=== PATIENT | female | born 1955 | race Caucasian/White ===

== ENCOUNTER 2017-12-16 07:17 | Day surgery (SDC) | payer BC ==
[~2017-12-16 07:17] MED LIST: Sodium Chloride 0.9% 10 ML Syringe FLUSH PRN
[2017-12-16] MEDS ORDERED: Lactated Ringers 1,000 ML IV SCH (07:30)
[2017-12-16] MEDS ORDERED: Propofol 200 MG/20 ML SDV IV ONE (08:45)
--- NOTE | 2017-12-21 07:47 | PCM.OPNOTE ---
- General Post-Op/Procedure Note Date of Surgery/Procedure: 12/21/17 Operative Procedure(s): c scope with bx Findings: sigmoid and rectal polyps hyperplastic Pre Op Diagnosis: colon cancer screening Post-Op Diagnosis: sigmoid and rectal polyps Anesthesia Technique: MAC Primary Surgeon: Riley Cancino Anesthesia Provider: Lamont Delarosa Pathology: sigmoid colon polyp rectal polyps Complications: None Condition: Good Free Text/Narrative:: see dictation
--- NOTE | 2017-12-21 14:46 | OR ---
DATE OF OPERATION: 12/21/2017 SURGEON: Riley Cancino MD PROCEDURE PERFORMED: Colonoscopy, cold forceps biopsy. PREOPERATIVE DIAGNOSIS: Screening for colon cancer. POSTOPERATIVE DIAGNOSIS: Polyps of the sigmoid and rectum. INDICATIONS FOR PROCEDURE: This is a 62-year-old white female, who presents for a screening colonoscopy. She was offered and accepted the same. DESCRIPTION OF OPERATION: After an excellent IV sedation was administered, digital rectal exam was performed. No marked abnormality was noted. Flexible colonoscope was inserted and advanced to the cecum without difficulty. The prep was excellent. The following findings were noted: Ascending colon was unremarkable. Transverse colon was unremarkable. Descending colon, a hyperplastic-appearing lesion, biopsied with cold biopsy forceps and sent for permanent. Rectum, several hyperplastic-appearing polyps were encountered. These were biopsied as well and sent for permanent. Colon was deflated as the scope was removed. Patient tolerated procedure well, was taken to recovery in good condition. /[id number] JLUIS/DANIELLE
== END 2017-12-16 10:15 | disposition home or self-care (01) ==
LOC: FB.SDS 07:17
PROVIDERS: ATTEND Surgery
DX: Z12.11 Encounter for screening for malignant neoplasm of colon (principal); K63.5 Polyp of colon; K62.1 Rectal polyp; E66.9 Obesity, unspecified; Z68.34 Body mass index [BMI] 34.0-34.9, adult; E78.2 Mixed hyperlipidemia; F32.9 Major depressive disorder, single episode, unspecified; E78.00 Pure hypercholesterolemia, unspecified; Z79.899 Other long term (current) drug therapy
CPT/HCPCS: 88305; J2704; J7120

== ENCOUNTER 2023-02-03 08:04 | Day surgery (SDC) | payer BC, MEDICARE ==
[~2023-02-03 08:04] MED LIST changes: +Lactated Ringers 1,000 ML IV PRN
[2023-02-03] MEDS ORDERED: Midazolam 1 MG/ML 2 ML SDV IV ONE (08:05)
[2023-02-03] MEDS ORDERED: fentaNYL 100 MCG/2 ML SDV IV ONE (08:05)
[2023-02-03] MEDS ORDERED: acetaZOLAMIDE 500 MG Cap.ER PO ONE (10:00)
== END 2023-02-03 10:50 | disposition home or self-care (01) ==
LOC: FB.SDS 08:04
PROVIDERS: ATTEND Ophthalmology
DX: H25.013 Cortical age-related cataract, bilateral (principal); E78.01 Familial hypercholesterolemia; F32.A Depression, unspecified; F41.9 Anxiety disorder, unspecified; G43.909 Migraine, unspecified, not intractable, without status migrainosus; E66.9 Obesity, unspecified; Z79.899 Other long term (current) drug therapy
CPT/HCPCS: 00142; 66984; A9270; J2250; J3010; J3490; V2632

== ENCOUNTER 2023-02-17 07:33 | Day surgery (SDC) | payer MEDICARE ==
[~2023-02-17 07:33] MED LIST changes: -Sodium Chloride 0.9% 10 ML Syringe FLUSH PRN
[2023-02-17] MEDS ORDERED: fentaNYL 100 MCG/2 ML SDV IV ONE (07:34)
[2023-02-17] MEDS ORDERED: Sodium Chloride 0.9% 10 ML Syringe IV ONE (07:34)
[2023-02-17] MEDS ORDERED: Midazolam 1 MG/ML 2 ML SDV IV ONE (07:34)
[2023-02-17] MEDS: Sodium Chloride 0.9% 10 ML Syringe FLUSH PRN (08:15)
[2023-02-17] MEDS: acetaZOLAMIDE 500 MG Cap.ER PO ONE (09:48)
== END 2023-02-17 10:12 | disposition home or self-care (01) ==
LOC: FB.SDS 07:33
PROVIDERS: ATTEND Ophthalmology
DX: H25.013 Cortical age-related cataract, bilateral (principal); F41.9 Anxiety disorder, unspecified; F32.A Depression, unspecified; G43.909 Migraine, unspecified, not intractable, without status migrainosus; I25.10 Atherosclerotic heart disease of native coronary artery without angina pectoris; E78.01 Familial hypercholesterolemia; E78.5 Hyperlipidemia, unspecified; E66.9 Obesity, unspecified; Z79.899 Other long term (current) drug therapy; Z68.34 Body mass index [BMI] 34.0-34.9, adult
CPT/HCPCS: 00142; A9270-GY; J2250; J3010; J3490; V2632

== ENCOUNTER 2023-10-17 13:00 | Emergency (ER) | payer MEDICARE ==
[2023-10-17 13:24] LABS: BLOOD UREA NITROGEN,BUN 20 mg/dL (7-18); BUN/CREATININE RATIO 18.2 (9-20); CARBON DIOXIDE,CO2 24 mmol/L (21-32); CHLORIDE,CL 106 mmol/L (100-110); CREATININE 1.1 mg/dL (0.55-1.02); EST CRCL DRUG DOSING (CG) 38.71 mL/min; ESTIMATED GFR 55 mL/min (>60); GLUCOSE RANDOM 96 mg/dL (80-116); POTASSIUM,K 3.8 mmol/L (3.5-5.3); SODIUM,NA 142 mmol/L (135-145)
[2023-10-17 13:26] LABS: BASOPHILS ABSOLUTE AUTO 0.1 x10-3/uL (0.0-0.1); EOSINOPHILS ABSOLUTE AUTO 0.3 x10-3/uL (0.0-0.8); EOSINOPHILS PERCENT AUTO 3.6 % (0.6-8.1); HEMATOCRIT 43.8 % (34.2-48.2); HEMOGLOBIN 14.4 g/dL (11.4-15.5); LYMPHOCYTES ABSOLUTE AUTO 2.7 x10-3/uL (1.0-4.4); LYMPHOCYTES PERCENT AUTO 35.2 % (18.4-52.1); MEAN CORPUSCULAR HEMOGLOBIN 28.5 pg (23.9-33.9); MEAN CORPUSCULAR VOLUME 86.4 fL (76.7-100.5); MEAN PLATELET VOLUME 9.2 fL (7.1-12.4); MONOCYTES ABSOLUTE AUTO 0.5 x10-3/uL (0.3-1.0); NEUTROPHILS ABSOLUTE AUTO 4.1 x10-3/uL (1.5-6.3); NEUTROPHILS PERCENT AUTO 53.2 % (30.8-76.2); PLATELET COUNT,PLT 237 x10(3)uL (151-488); RED BLOOD CELL COUNT 5.07 x10(6)uL (3.60-5.20); RED CELL DISTRIBUTION WIDTH 13.5 % (12.3-16.5); WHITE BLOOD CELL COUNT,WBC 7.7 x10-3/uL (3.0-10.3)
[2023-10-17 13:30] LABS: A/G RATIO 1.1; ALANINE AMINOTRANSFERASE,ALT 37 U/L (12-36); ALBUMIN 3.6 g/dL (3.2-4.6); ALKALINE PHOSPHATASE 93 IU/L (56-112); ASPARTATE AMNIOTRANSFERASE,AST 20 IU/L (5-25); BILIRUBIN TOTAL 0.6 mg/dL (0.1-1.3); PROTEIN TOTAL,TP 6.8 g/dL (6.0-8.0)
[2023-10-17 13:37] LABS: PRO B-TYPE NATRIUR PEPT,BNPPRO 50 pg/mL (<=125)
[2023-10-17 13:47] LABS: TROPONIN I < 4.0 pg/mL (4.0-60.3)
[2023-10-17 13:59] LABS: D-DIMER QUANTITATIVE 0.3 mg/LFEU (0.0-0.59); INR 0.91 (1.00-1.24); PROTHROMBIN TIME 9.6 sec (9.0-11.1)
== END 2023-10-17 14:20 | disposition home or self-care (01) ==
LOC: FB.ED 13:00
DX: R07.9 Chest pain, unspecified (principal); E78.5 Hyperlipidemia, unspecified; I10 Essential (primary) hypertension; E66.9 Obesity, unspecified; Z90.49 Acquired absence of other specified parts of digestive tract; Z79.899 Other long term (current) drug therapy; Z68.32 Body mass index [BMI] 32.0-32.9, adult
CPT/HCPCS: 36415; 71045; 80053; 83880; 84484; 85025; 85379; 85610; 85730; 93005; 99285